=== PATIENT | male | born 1940 | race Caucasian/White ===

== ENCOUNTER 2017-11-19 18:52 | Emergency (ER) | payer OTHER, MEDICARE, BC ==
[2017-11-19 18:52] VITALS: BMI 18.8
[2017-11-19 19:12] VITALS: RESP 18; O2SAT 98
[2017-11-19] MEDS ORDERED: Sodium Chloride 0.9% 1,000 ML IV STA (19:56)
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
[2017-11-19 20:45] LABS: BASO # 0.1 K/uL (0.0-0.2); BASO % 0.8 % (0.0-2.0); EOS # 0.2 K/uL (0.0-0.7); EOS % 2.2 % (0.0-4.0); HEMOGLOBIN 15.8 g/dL (12.0-18.0); LYMPH # 1.5 K/uL (1.0-4.3); LYMPH % 18.8 % (20.0-40.0); MEAN CELL VOLUME 91.5 fl (80.0-94.0); MEAN CORPUSCULAR HEMOGLOBIN 31.1 pg (27.0-31.0); MEAN PLATELET VOLUME 9.3 fl (7.2-11.7); MONO # 0.7 K/uL (0.0-0.8); NEUT # 5.4 K/uL (1.8-7.0); NEUT % 69.2 % (50.0-75.0); NRBC % 0.1 % (0.0-0.0); RBC 5.1 Mil/uL (4.40-5.90); RED CELL DISTRIBUTION WIDTH 13.4 % (11.5-14.5); WHITE BLOOD COUNT 7.8 K/uL (4.8-10.8)
[2017-11-19 21:01] LABS: BLOOD UREA NITROGEN 14 mg/dl (9-20); CALCIUM 9.5 mg/dL (8.4-10.2); GFR AFRICAN-AMERICAN > 60; GFR NON-AFRICAN AMERICAN > 60
[2017-11-19 22:03] VITALS: BP 154/89; PULSE 89; TEMP 98.2
--- NOTE | 2017-11-20 11:04 | CT ---
Date of service: 11/19/2017 PROCEDURE: CT HEAD WITHOUT CONTRAST. HISTORY: headache COMPARISON: None available. TECHNIQUE: Axial computed tomography images were obtained through the head/brain without intravenous contrast. Radiation dose: Total exam DLP = 933.90 mGy-cm. This CT exam was performed using one or more of the following dose reduction techniques: Automated exposure control, adjustment of the mA and/or kV according to patient size, and/or use of iterative reconstruction technique. FINDINGS: HEMORRHAGE: No acute parenchymal,, subarachnoid or extra-axial hemorrhage. BRAIN: Mild chronic periventricular white matter ischemic changes. 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 Moderate central volume loss Minor vascular calcifications both carotid siphons. VENTRICLES: Unremarkable. No hydrocephalus. CALVARIUM: Unremarkable. PARANASAL SINUSES: Mucosal thickening seen left maxillary antrum with minimal mucosal thickening right maxillary antrum. There is also mild to moderate mucosal thickening ethmoid air complex extending superiorly into the frontal sinus. . There is also mild mucosal thickening in the sphenoid sinus. MASTOID AIR CELLS: Unremarkable as visualized. No inflammatory changes. OTHER FINDINGS: Changes of bilateral cataract surgery. IMPRESSION: No acute intracranial hemorrhage. Minimal chronic white matter ischemic changes with a few scattered chronic bilateral basal nuclei lacunar type infarcts. Moderate central volume loss. Mucoperiosteal inflammatory changes seen within all the paranasal sinuses. . Note that a preliminary report was provided by overnight radiology service.
--- NOTE | 2017-11-20 12:33 | CT ---
Date of service: 11/19/2017 PROCEDURE: CT Cervical Spine without contrast HISTORY: The neck pain COMPARISON: None available. TECHNIQUE: Axial computed tomography images were obtained of the cervical spine without the use of intravenous contrast. Coronal and sagittal reformatted images were created and reviewed. Radiation dose: Total exam DLP = 428.59 mGy-cm. This CT exam was performed using one or more of the following dose reduction techniques: Automated exposure control, adjustment of the mA and/or kV according to patient size, and/or use of iterative reconstruction technique. FINDINGS: VERTEBRAE: No acute compression fractures no retropulsed fragments. Vertebral bodies exhibit normal stature. Vertebral bodies and facets normally aligned. DISCS/SPINAL CANAL/NEURAL FORAMINA: Moderate to significant multilevel degenerative spondylosis throughout though most notably affecting the C5-C6 and C6-C7 levels. At the C5-C6 level, there is marked disc space narrowing endplate eburnation and prominent posterior osteophytic ridge complex at is contiguous with hypertrophic uncovertebral joints. The changes result in asymmetric cord compression and moderate central canal stenosis more so on the right side. Exit foramina stenotic due to overgrown uncovertebral facets right greater than left. At the C6-C7 level, similar changes are seen with broad-based disc ridge complex contiguous with hypertrophic uncovertebral joints. Facets are also hypertrophic. There is moderate central canal stenosis and cord compression. At the C4-C5 level, there is also disc space narrowing, endplate eburnation with broad-based abdomen ridge disc complex contiguous with hypertrophic uncovertebral joints. The facets are quite hypertrophic on the right side. There is central canal narrowing and cord compression with the significant right-sided foraminal stenosis. Left exit foramen is also stenotic. Minor scarring changes seen both lung apices. PARASPINAL SOFT TISSUES: Paraspinal soft tissues unremarkable OTHER FINDINGS: Minor biapical pleural thickening and adjacent parenchymal scarring changes. IMPRESSION: No acute fractures. Multilevel degenerative spondylosis most severely affecting the C5-C6, C6-C7 and to a slightly lesser degree C4-C5 levels. Less severe changes seen at the remaining levels
--- NOTE | 2017-11-20 14:58 | RAD ---
Date of service: 11/19/2017 HISTORY: dyspnea COMPARISON: Comparison chest 08/18/2015 TECHNIQUE: Chest PA and lateral FINDINGS: LUNGS: Mild bibasilar atelectasis. PLEURA: No significant pleural effusion identified. No pneumothorax apparent. CARDIOVASCULAR: Normal. OSSEOUS STRUCTURES: Mild multilevel degenerative spondylosis of the thoracic spine. Changes of the calcified tendinitis bilateral shoulders felt be present bustos aerated mild degenerative osteoarthritis left glenohumeral joint. VISUALIZED UPPER ABDOMEN: Normal. OTHER FINDINGS: None. IMPRESSION: No active disease.
--- NOTE | 2017-11-20 15:13 | RAD ---
PROCEDURE: Left Hand Radiographs. HISTORY: pain COMPARISON: None. FINDINGS: BONES: There is a vague lucency apparently along the dorsal aspect of the triquetrum lateral projection. The possibility of a triquetrum fracture should be excluded. . Recommend repeat rated 7-10 days as most fractures should become radiographically evident in this timeframe. JOINTS: Minor multi articular degenerative osteoarthritis SOFT TISSUES: Normal. OTHER FINDINGS: None. IMPRESSION: There is a vague lucency apparently along the dorsal aspect of the triquetrum lateral projection. The possibility of a triquetrum fracture should be excluded. . Recommend repeat rated 7-10 days as most fractures should become radiographically evident in this timeframe. Note this report was placed in PA review folder followup
--- NOTE | 2017-11-20 15:16 | RAD ---
Date of service: 11/19/2017 PROCEDURE: Radiographs of the left elbow. HISTORY: pain COMPARISON: No prior. FINDINGS: BONES: Normal. No fracture. JOINTS: Minor degenerative osteoarthritis. SOFT TISSUES: Normal. JOINT EFFUSION: None. OTHER FINDINGS: None IMPRESSION: No acute fractures. Minor degenerative osteoarthritis
--- NOTE | 2017-11-21 10:14 | CARD ---
APPROVED REPORT Date of service: 11/19/2017 EKG Measurement Heart [id number] <Conclusion> Normal sinus rhythm Left axis deviation Low voltage QRS Inferior infarct, age undetermined Abnormal ECG
== END 2017-11-19 22:05 | disposition home or self-care (01) ==
LOC: H.ER 18:52
DX: S09.90XA Unspecified injury of head, initial encounter (principal); S69.92XA Unspecified injury of left wrist, hand and finger(s), initial encounter; S69.91XA Unspecified injury of right wrist, hand and finger(s), initial encounter; Y93.01 Activity, walking, marching and hiking; V09.20XA Pedestrian injured in traffic accident involving unspecified motor vehicles, initial encounter
CPT/HCPCS: 70450; 71046; 72125; 73080; 73130; 80048; 84484; 85025; 93005; 99284; J7030